=== PATIENT | female | born 1990 ===

== ENCOUNTER 2020-08-19 04:56 | Inpatient (IN) | payer MEDICAID ==
[2020-08-19] MEDS ORDERED: Misoprostol 25 MCG (1/4 of 100 MCG) Tab VAG PRN (09:24)
[2020-08-19] MEDS ORDERED: Lidocaine 1% 50 ML MDV INJECT PRN (09:24)
[2020-08-19] MEDS ORDERED: Misoprostol 25 MCG (1/4 of 100 MCG) Tab PO PRN (09:24)
[2020-08-19] MEDS ORDERED: Terbutaline 1 MG/ML SDV SUBCUT PRN (09:24)
[2020-08-19] MEDS ORDERED: Sodium Chloride 0.9% 10 ML Syringe FLUSH PRN (09:24)
[2020-08-19] MEDS ORDERED: Carboprost Tromethamine 250 MCG/1 ML Amp IM PRN (09:24)
[2020-08-19] MEDS ORDERED: Sodium Chloride 0.9% 2.5 ML Syringe FLUSH PRN (09:24)
[2020-08-19] MEDS ORDERED: Water For Irrigation,Sterile 1,000 ML Container IRR PRN (09:24)
[2020-08-19] MEDS ORDERED: Sodium Chloride 0.9% 10 ML SDV IV PRN (09:24)
[2020-08-19] MEDS ORDERED: Misoprostol 200 MCG Tab PO PRN (09:24)
[2020-08-19] MEDS ORDERED: Ondansetron 4 MG/2 ML SDV IVPUSH PRN (09:24)
[2020-08-19] MEDS ORDERED: Methylergonovine 0.2 MG/1 ML Amp IM PRN (09:24)
[2020-08-19] MEDS ORDERED: Tranexamic Acid 1,000 MG in Sodium Chloride 0.9% 100 ML IV PRN (09:24)
[2020-08-19] MEDS ORDERED: LORazepam 0.5 MG Tab PO ONE (09:28)
[2020-08-19] MEDS ORDERED: Oxytocin/0.9 % Sodium Chloride 30 UNIT/500 ML BAG IV SCH ×2 (09:30)
--- NOTE | 2020-08-19 10:28 | PCM.LDHP ---
L&D History of Present Illness - General Date of Service: 08/19/20 Admit Problem/Dx: Patient Status Order with Admit Dx/Problem 08/19/20 08:36 Patient Status [ADT] Routine Admission Diagnosis/Problem Admission Diagnosis/Problem 08/19/20 10:23 Lavinia is a 29 yo at 39+0 weeks gestation (KAY 08/26/2020) that presents to L&D today for elective induction of labor. Reports adequate movement. Denies rubio vaginal bleeding at this time. O pos, RI, GBS neg. EFW via [place] 7-8 lbs. 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 NKDA. TWG 58.8 lbs. Medications: PNV. Patient has no other complaints or concerns at this time and verbalizes readiness to commence with elective IOL. 08/19/20 10:28 Source of Information: Patient History Limitations: Reports: No Limitations - History of Present Illness Improves with: Reports: None Worsens with: Reports: None Associated Symptoms: Reports: N - Related Data Allergies/Adverse Reactions: Allergies Allergy/AdvReac Type Severity Reaction Status Date / Time Penicillins Allergy Anaphylactic Verified 08/19/20 09:22 Shock Home Medications: Home Meds Acetaminophen [Tylenol Extra Strength] 1 - 2 tab PO PRN 08/19/20 [History] Past Medical History Cardiovascular History: Reports: None Respiratory History: Reports: None Gastrointestinal History: Reports: None Genitourinary History: Reports: None 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 : 2 Para: 0 LMP (Approximate): Musculoskeletal History: Reports: Other (See Below) (Scoliosis; sciatica) Neurological History: Reports: Other (See Below) (RLS) Psychiatric History: Reports: Anxiety, Other (See Below) (Severe needle phobia) Endocrine/Metabolic History: Reports: Obesity/BMI 30+ Hematologic History: Reports: None Immunologic History: Reports: None Oncologic (Cancer) History: Reports: None Dermatologic History: Reports: None - Infectious Disease History Infectious Disease History: Reports: None Social & Family History - Family History Family Medical History: No Pertinent Family History H&P Review of Systems - Review of Systems: Review Of Systems: Comprehensive ROS is negative, except as noted in HPI. General: Reports: No Symptoms HEENT: Reports: No Symptoms Pulmonary: Reports: No Symptoms Cardiovascular: Reports: No Symptoms Gastrointestinal: Reports: No Symptoms Genitourinary: Reports: No Symptoms Musculoskeletal: Reports: No Symptoms Skin: Reports: No Symptoms Psychiatric: Reports: No Symptoms Neurological: Reports: No Symptoms Hematologic/Lymphatic: Reports: No Symptoms Immunologic: Reports: No Symptoms L&D Exam - Exam Exam: See Below - Vital Signs Vital Signs: HR 99; BP 124/71 (83); T 97.3. Hemodynamically stable, afebrile Weight: 260 lb - OB Specific Fundal Height In cm: 39 Contraction Duration (sec): 90 Contraction Frequency (min): Occasional Contraction Intensity: Mild Movement: Active Heart Tones: Present Heart Tones per Min: 160 Heart Rate (FHR) Variability: Moderate (6-25 bmp) Presentation: Vertex (Confirmed via Bruno's and handheld TAUS) - Exam General: Alert, Oriented, Mild Distress (Increased anxiety) HEENT: Conjunctiva Clear, Hearing Intact, Mucosa Moist & [place], Normal Nasal Septum, Pupils Equal, TMs Clear, PERRLA Neck: Supple, Trachea Midline Lungs: Clear to Auscultation, Normal Respiratory Effort Cardiovascular: Regular Rate, Regular Rhythm GI/Abdominal Exam: Normal Bowel Sounds, Soft, Non-Tender, No Organomegaly, No Distention Rectal Exam: Deferred Back Exam: Normal Inspection, Full Range of Motion Extremities: Normal Inspection, Normal Range of Motion, Non-Tender, No Pedal Edema, Normal Capillary Refill Skin: Warm, Dry, Intact Neurological: Cranial Nerves Intact, Reflexes Equal Bilateral Psychiatric: Alert, Normal Affect, Normal Mood - Problem List (1) Elective induction of labor planned SNOMED Code(s): 696247768 ICD Code: [id number] - Status: Acute Priority: High Current Visit: Yes (2) 39 weeks gestation of SNOMED Code(s): 61754684 ICD Code: Z3A.39 - 39 WEEKS GESTATION OF Status: Acute Priority: High Current Visit: Yes Problem List Initiated/Reviewed/Updated: Yes Orders Last 24hrs: Active Orders 24 hr Category Date Time Status Patient Status [ADT] Routine ADT 08/19/20 08:36 Active Bedrest Bathroom Privileges [RC] ASDIRECTED Care 08/19/20 09:24 Active Communication Order [RC] ASDIRECTED Care 08/19/20 09:24 Active Communication Order [RC] ASDIRECTED Care 08/19/20 09:24 Active Communication Order [RC] ASDIRECTED Care 08/19/20 09:24 Active Heart Tones [RC] CONTINUOUS Care 08/19/20 09:24 Active Non Stress Test [RC] PER UNIT ROUTINE Care 08/19/20 09:24 Active May Shower [RC] ASDIRECTED Care 08/19/20 09:24 Active Notify Provider [RC] PRN Care 08/19/20 09:24 Active Notify Provider [RC] PRN Care 08/19/20 09:24 Active Notify Provider [RC] PRN Care 08/19/20 09:24 Active Notify Provider [RC] STAT Care 08/19/20 09:24 Active Oxygen Therapy [RC] ASDIRECTED Care 08/19/20 09:24 Active Up ad Avani [RC] ASDIRECTED Care 08/19/20 09:24 Active Vaginal Exam [RC] PRN Care 08/19/20 09:24 Active Vaginal Exam [RC] PRN Care 08/19/20 09:24 Active Vital Signs [RC] PER UNIT ROUTINE Care 08/19/20 09:24 Active Vital Signs [RC] PER UNIT ROUTINE Care 08/19/20 09:24 Active Regular Diet [DIET] Diet 08/19/20 Lunch Active CBC W/O DIFF,HEMOGRAM [HEME] Routine Lab 08/19/20 09:24 Ordered CORONAVIRUS COVID-19 PCR PHL Stat Lab 08/19/20 09:26 Ordered RPR (SYPHILIS SERO) W/ RFLX [REF] Routine Lab 08/19/20 09:24 Ordered TYPE AND SCREEN [BBK] Routine Lab 08/19/20 09:24 Ordered Butorphanol [Stadol] Med 08/19/20 09:24 Active 1 mg IVPUSH Q1H PRN Carboprost Tromethamine [Hemabate DS] Med 08/19/20 09:24 Active 250 mcg IM ASDIRECTED PRN Lactated Ringers [Ringers, Lactated] 1,000 ml Med 08/19/20 09:30 Active IV ASDIRECTED Lidocaine 1% [Xylocaine 1%] Med 08/19/20 09:24 Active 50 ml INJECT ONETIME PRN Methylergonovine [Methergine] Med 08/19/20 09:24 Active 0.2 mg IM ASDIRECTED PRN Ondansetron [Zofran] Med 08/19/20 09:24 Active 4 mg IVPUSH Q6H PRN Oxytocin/0.9 % Sodium Chloride [Oxytocin 30 Unit/500 ML Med 08/19/20 09:30 Active -NS] 30 unit in 500 ml IV TITRATE Oxytocin/0.9 % Sodium Chloride [Oxytocin 30 Unit/500 ML Med 08/19/20 09:30 Active -NS] 30 unit in 500 ml IV TITRATE Sodium Chloride 0.9% [Normal Saline] Med 08/19/20 09:24 Active 10 ml IV ASDIRECTED PRN Sodium Chloride 0.9% [Saline Flush] Med 08/19/20 09:24 Active 10 ml FLUSH ASDIRECTED PRN Sodium Chloride 0.9% [Saline Flush] Med 08/19/20 09:24 Active 2.5 ml FLUSH ASDIRECTED PRN Terbutaline [Brethine] Med 08/19/20 09:24 Active 0.25 mg SUBCUT ASDIRECTED PRN Tranexamic Acid [Cyklokapron] 1,000 mg Med 08/19/20 09:24 Active Sodium Chloride 0.9% [Normal Saline] 100 ml IV ONETIME Water For Irrigation,Sterile [Sterile Water for Med 08/19/20 09:24 Active Irrigation] 1,000 ml IRR ASDIRECTED PRN hydrOXYzine pamoate [Vistaril] Med 08/19/20 09:27 Active 50 mg PO BEDTIME PRN miSOPROStoL [Cytotec] Med 08/19/20 09:24 Active 200 mcg PO ONETIME PRN miSOPROStoL [Cytotec] Med 08/19/20 09:24 Active 25 mcg PO Q4H PRN miSOPROStoL [Cytotec] Med 08/19/20 09:24 Active 25 mcg VAG Q4H PRN Scalp Electrode [WOMSER] Per Unit Routine Oth 08/19/20 09:24 Ordered Medication Administration Instruction [OM.PC] Q3H Oth 08/19/20 09:30 Ordered Peripheral IV Insertion Adult [OM.PC] Routine Oth 08/19/20 09:24 Ordered Resuscitation Status Routine Resus Stat 08/19/20 09:24 Ordered Medication Orders Butorphanol Tartrate (Stadol) 1 mg IVPUSH Q1H PRN PRN Reason: Pain Carboprost Tromethamine (Hemabate Ds) 250 mcg IM ASDIRECTED PRN PRN Reason: Post Hemorrhage Hydroxyzine Pamoate (Vistaril) 50 mg PO BEDTIME PRN PRN Reason: Sleep Oxytocin/Sodium Chloride (Oxytocin 30 Unit/500 Ml-Ns) 30 unit in 500 mls @ 999 mls/hr IV TITRATE MORELIA Tranexamic Acid 1,000 mg/ (Sodium Chloride) 110 mls @ 660 mls/hr IV ONETIME PRN PRN Reason: Bleeding Oxytocin/Sodium Chloride (Oxytocin 30 Unit/500 Ml-Ns) 30 unit in 500 mls @ 2 mls/hr IV TITRATE MORELIA; Protocol Lactated Ringer's (Ringers, Lactated) 1,000 mls @ 150 mls/hr IV ASDIRECTED MORELIA Lidocaine HCl (Xylocaine 1%) 50 ml INJECT ONETIME PRN PRN Reason: Laceration repair Methylergonovine Maleate (Methergine) 0.2 mg IM ASDIRECTED PRN PRN Reason: Post Hemorrhage Misoprostol (Cytotec) 200 mcg PO ONETIME PRN PRN Reason: Post Hemorrhage Misoprostol (Cytotec) 25 mcg VAG Q4H PRN PRN Reason: Cervical Ripening Misoprostol (Cytotec) 25 mcg PO Q4H PRN PRN Reason: Cervical Ripening Ondansetron HCl (Zofran) 4 mg IVPUSH Q6H PRN PRN Reason: Nausea/Vomiting Sodium Chloride (Saline Flush) 10 ml FLUSH ASDIRECTED PRN PRN Reason: Keep Vein Open Sodium Chloride (Saline Flush) 2.5 ml FLUSH ASDIRECTED PRN PRN Reason: Keep Vein Open Sodium Chloride (Normal Saline) 10 ml IV ASDIRECTED PRN PRN Reason: IV Use Sterile Water (Sterile Water For Irrigation) 1,000 ml IRR ASDIRECTED PRN PRN Reason: delivery Terbutaline Sulfate (Brethine) 0.25 mg SUBCUT ASDIRECTED PRN PRN Reason: Tacysystole Assessment/Plan Comment:: Admit for observation for elective IOL at 39.0 weeks gestation. Consents signed in office prior to arrival, no questions or concerns at this time. at bedside for support. 0.5 mg lorazepam given to patient 20-30 min prior to IV start/venipuncture. IV start and labs pending collection. FHR 160 bpm, moderate variability, + accels, no decels noted at this time; Cat I, reactive/reassuring. Mild occasional contractions noted. Plan 1000 ml LR bolus prior to SVE and cytotec placement; then cytotec to pitocin regimen as ordered. May receive epidural pending labs between 5-6 cm. See new orders. Plan Dr. Rosen in facility at due to failed 1-hr GTT with no F/U due to declination and excessive TWG for pre- BMI. Dr. Rosen notified and agreeable with POC.
[2020-08-19] MEDS: Lactated Ringers 1,000 ML IV SCH ×3 (13:16→17:02)
[2020-08-19] MEDS: Acetaminophen 500 MG Tab PO PRN (16:08)
[2020-08-19] MEDS: hydrOXYzine Pamoate 25 MG Cap PO PRN (17:34)
[2020-08-20] MEDS: Butorphanol 1 MG/ML SDV IVPUSH PRN ×2 (00:01→07:21)
[2020-08-20] MEDS: Lactated Ringers 1,000 ML IV SCH ×4 (00:56→13:24)
--- NOTE | 2020-08-20 06:04 | PCM.PNLD ---
Labor Progress Note - VS & Meds Vital Signs: Last Vital Signs Temp 99.7 F 08/19/20 16:08 Pulse 66 08/19/20 09:26 Resp 20 08/19/20 09:26 BP 117/75 08/19/20 09:26 Pulse Ox BP 108/74 (82); RR 16; HR 76; T 98.0 Active Medications: Current Medications Acetaminophen (Tylenol Extra Strength) 1,000 mg PO Q6H PRN PRN Reason: Pain Last Admin: 08/19/20 16:08 Dose: 1,000 mg Documented by: Butorphanol Tartrate (Stadol) 1 mg IVPUSH Q1H PRN PRN Reason: Pain Last Admin: 08/20/20 00:01 Dose: 1 mg Documented by: Carboprost Tromethamine (Hemabate Ds) 250 mcg IM ASDIRECTED PRN PRN Reason: Post Hemorrhage Hydroxyzine Pamoate (Vistaril) 50 mg PO BEDTIME PRN PRN Reason: Sleep Last Admin: 08/19/20 17:34 Dose: 50 mg Documented by: Oxytocin/Sodium Chloride (Oxytocin 30 Unit/500 Ml-Ns) 30 unit in 500 mls @ 999 mls/hr IV TITRATE MORELIA Tranexamic Acid 1,000 mg/ (Sodium Chloride) 110 mls @ 660 mls/hr IV ONETIME PRN PRN Reason: Bleeding Oxytocin/Sodium Chloride (Oxytocin 30 Unit/500 Ml-Ns) 30 unit in 500 mls @ 2 mls/hr IV TITRATE MORELIA; Protocol Last Titration: 08/20/20 05:05 Dose: 12 munits/min, 12 mls/hr Documented by: Lactated Ringer's (Ringers, Lactated) 1,000 mls @ 150 mls/hr IV ASDIRECTED MORELIA Last Admin: 08/20/20 00:56 Dose: 125 mls/hr Documented by: Lidocaine HCl (Xylocaine 1%) 50 ml INJECT ONETIME PRN PRN Reason: Laceration repair Methylergonovine Maleate (Methergine) 0.2 mg IM ASDIRECTED PRN PRN Reason: Post Hemorrhage Misoprostol (Cytotec) 200 mcg PO ONETIME PRN PRN Reason: Post Hemorrhage Misoprostol (Cytotec) 25 mcg VAG Q4H PRN PRN Reason: Cervical Ripening Last Admin: 08/19/20 13:21 Dose: 25 mcg Documented by: Misoprostol (Cytotec) 25 mcg PO Q4H PRN PRN Reason: Cervical Ripening Last Admin: 08/19/20 13:23 Dose: 25 mcg Documented by: Ondansetron HCl (Zofran) 4 mg IVPUSH Q6H PRN PRN Reason: Nausea/Vomiting Sodium Chloride (Saline Flush) 10 ml FLUSH ASDIRECTED PRN PRN Reason: Keep Vein Open Sodium Chloride (Saline Flush) 2.5 ml FLUSH ASDIRECTED PRN PRN Reason: Keep Vein Open Sodium Chloride (Normal Saline) 10 ml IV ASDIRECTED PRN PRN Reason: IV Use Sterile Water (Sterile Water For Irrigation) 1,000 ml IRR ASDIRECTED PRN PRN Reason: delivery Terbutaline Sulfate (Brethine) 0.25 mg SUBCUT ASDIRECTED PRN PRN Reason: Tacysystole Discontinued Medications Lorazepam (Ativan) 0.5 mg PO ONETIME ONE Stop: 08/19/20 09:29 Last Admin: 08/19/20 10:04 Dose: 0.5 mg Documented by: - Uterine Contractions Uterine Monitoring Mode: External [place] Contraction Frequency (min): Occasional Contraction Duration (sec): 60-90 Contraction Intensity: Moderate Uterine Resting Tone: Soft - Monitoring Monitor Mode: External Ultrasound Heart Rate (FHR) Baseline: 165 Heart Rate (FHR) Variability: Moderate (6-25 bmp) Accelerations: Present, 15x15 Decelerations: None - Vaginal Exam Dilation (cm): 4 Effacement (Percent): 50 Station: -3 Cervical Position: Midposition Sterile Vaginal Exam Performed By: Sangeetha Scott - Labor Progress (Free Text) Labor Progress: Lavinia is a 29 yo at 39+1 weeks gestation (KAY 08/26/2020) that presented 08/19 to L&D today for elective induction of labor. Reports adequate movement. Denies rubio vaginal bleeding, LOF at this time. O pos, RI, GBS neg. . 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 NKDA. TWG 58.8 lbs. Medications: PNV. Patient completed Cook catheter cervical ripening that was placed ~1730 08/19 and spontaneously expelled around 0000 today with SVE at that time OF 3-50/-3. Pitocin titration started around 2 am due to lack of cervical change, current on 12 milliunits/min. FHR as indicated above. Hemodynamically stable, afebrile. SVE performed by CNM at bedside unchanged, 50/-3, soft and stretchy, midposition. AROM completed without incident, small clear fluid, cephalic. FHR 165, moderate variability, + accels, no decels. Mild to moderate contractions/uterine irritability palpated every 1-2 minutes. Plan to decrease pitocin titrate to 6 milliunits/min, patient shall ambulate and perform frequent position changes. May receive epidural analgesia between 5-6 cm. Continuous monitoring indicated as long as pitocin titration is continued. Dr. Rosen notified and agreeable with POC.
[2020-08-20] MEDS ORDERED: Ropivacaine HCl/PF 100 ML ONE ×2 (08:14→18:47)
[2020-08-20] MEDS ORDERED: fentaNYL 100 MCG/2 ML SDV ONE (08:14)
--- NOTE | 2020-08-20 09:03 | PCM.PREANE ---
Preanesthetic Assessment - Anesthesia/Transfusion/Family Hx Anesthesia History: Prior Anesthesia Without Reaction Family History of Anesthesia Reaction: No Transfusion History: No Prior Transfusion(s) - Review of Systems General: No Symptoms Pulmonary: No Symptoms Cardiovascular: No Symptoms Gastrointestinal: No Symptoms Neurological: Other (back pain) Other: Reports: Anxiety - Physical Assessment Vital Signs: Last Vital Signs Temp 37.6 C 08/19/20 16:08 Pulse 66 08/19/20 09:26 Resp 20 08/19/20 09:26 BP 117/75 08/19/20 09:26 Pulse Ox Height: 1.73 m Weight: 117.934 kg ASA Class: 2 Mental Status: Alert & Oriented x3 Airway Class: Mallampati = 2 Dentition: Reports: Normal Dentition Thyro-Mental Finger Breadths: 3 Mouth Opening Finger Breadths: 2 ROM/Head Extension: Full Lungs: Clear to Auscultation, Normal Respiratory Effort Cardiovascular: Regular Rate, Regular Rhythm - Lab Values: Laboratory Last Values WBC 9.59 K/uL (4.0-11.0) 08/19/20 12:48 RBC 4.19 M/uL (4.30-5.90) L 08/19/20 12:48 Hgb 11.4 g/dL (12.0-16.0) L 08/19/20 12:48 Hct 35.4 % (36.0-46.0) L 08/19/20 12:48 MCV 84.5 fL (80.0-98.0) 08/19/20 12:48 MCH 27.2 pg (27.0-32.0) 08/19/20 12:48 MCHC 32.2 g/dL (31.0-37.0) 08/19/20 12:48 RDW Std Deviation 48.5 fl (28.0-62.0) 08/19/20 12:48 RDW Coeff of Janine 16 % (11.0-15.0) H 08/19/20 12:48 Plt Count 264 K/uL (150-400) 08/19/20 12:48 MPV 10.90 fL (7.40-12.00) 08/19/20 12:48 Nucleated RBC % 0.0 /100WBC 08/19/20 12:48 Nucleated RBCs # 0 K/uL 08/19/20 12:48 Glucose 116 mg/dL (74-106) H 08/19/20 12:48 SARS-CoV-2 RNA (BRAIN) NEGATIVE (NEGATIVE) 08/19/20 10:56 Blood Type O POSITIVE 08/19/20 12:48 Antibody Screen NEGATIVE 08/19/20 12:48 - Allergies Allergies/Adverse Reactions: Allergies Allergy/AdvReac Type Severity Reaction Status Date / Time Penicillins Allergy Anaphylactic Verified 08/19/20 09:22 Shock - Acknowledgements Anesthesia Type Planned: Epidural (Dr. Torres discussed risks and benefits with the patient. All questions answered. Patient consent. Dr. Torres was requested to place epidural. 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 Musculoskeletal History: Reports: Back Pain, Chronic, Other (See Below) (S coliosis; sciatica, RLS) Neurological History: Reports: Other (See Below) (RLS) Other Neuro History: migraines during Psychiatric History: Reports: Anxiety, Other (See Below) (Severe needle phobia) Endocrine/Metabolic History: Reports: Obesity/BMI 30+ Hematologic History: Reports: None Immunologic History: Reports: None Oncologic (Cancer) History: Reports: None Dermatologic History: Reports: None - Infectious Disease History Infectious Disease History: Reports: None - Past Surgical History HEENT Surgical History: Reports: Oral Surgery Neurological Surgical History: Reports: None - History Comment History Comment: bp 116/74, temp 98.7, rr 19, p 84 - SUBSTANCE USE Tobacco Use Status *Q: Never Tobacco User Recreational Drug Use History: Yes Recreational Drug Type: Reports: Marijuana/Hashish - HOME MEDS Home Medications: Home Meds Acetaminophen [Tylenol Extra Strength] 1 - 2 tab PO PRN 08/19/20 [History] - CURRENT (IN HOUSE) MEDS Current Meds: Current Medications Acetaminophen (Tylenol Extra Strength) 1,000 mg PO Q6H PRN PRN Reason: Pain Last Admin: 08/19/20 16:08 Dose: 1,000 mg Documented by: Butorphanol Tartrate (Stadol) 1 mg IVPUSH Q1H PRN PRN Reason: Pain Last Admin: 08/20/20 07:21 Dose: 1 mg Documented by: Carboprost Tromethamine (Hemabate Ds) 250 mcg IM ASDIRECTED PRN PRN Reason: Post Hemorrhage Hydroxyzine Pamoate (Vistaril) 50 mg PO BEDTIME PRN PRN Reason: Sleep Last Admin: 08/19/20 17:34 Dose: 50 mg Documented by: Oxytocin/Sodium Chloride (Oxytocin 30 Unit/500 Ml-Ns) 30 unit in 500 mls @ 999 mls/hr IV TITRATE MORELIA Tranexamic Acid 1,000 mg/ (Sodium Chloride) 110 mls @ 660 mls/hr IV ONETIME PRN PRN Reason: Bleeding Oxytocin/Sodium Chloride (Oxytocin 30 Unit/500 Ml-Ns) 30 unit in 500 mls @ 2 mls/hr IV TITRATE MORELIA; Protocol Last Titration: 08/20/20 05:55 Dose: 6 munits/min, 6 mls/hr Documented by: Lactated Ringer's (Ringers, Lactated) 1,000 mls @ 150 mls/hr IV ASDIRECTED MORELIA Last Admin: 08/20/20 08:56 Dose: 300 mls/hr Documented by: Lidocaine HCl (Xylocaine 1%) 50 ml INJECT ONETIME PRN PRN Reason: Laceration repair Methylergonovine Maleate (Methergine) 0.2 mg IM ASDIRECTED PRN PRN Reason: Post Hemorrhage Misoprostol (Cytotec) 200 mcg PO ONETIME PRN PRN Reason: Post Hemorrhage Misoprostol (Cytotec) 25 mcg VAG Q4H PRN PRN Reason: Cervical Ripening Last Admin: 08/19/20 13:21 Dose: 25 mcg Documented by: Misoprostol (Cytotec) 25 mcg PO Q4H PRN PRN Reason: Cervical Ripening Last Admin: 08/19/20 13:23 Dose: 25 mcg Documented by: Ondansetron HCl (Zofran) 4 mg IVPUSH Q6H PRN PRN Reason: Nausea/Vomiting Sodium Chloride (Saline Flush) 10 ml FLUSH ASDIRECTED PRN PRN Reason: Keep Vein Open Sodium Chloride (Saline Flush) 2.5 ml FLUSH ASDIRECTED PRN PRN Reason: Keep Vein Open Sodium Chloride (Normal Saline) 10 ml IV ASDIRECTED PRN PRN Reason: IV Use Sterile Water (Sterile Water For Irrigation) 1,000 ml IRR ASDIRECTED PRN PRN Reason: delivery Terbutaline Sulfate (Brethine) 0.25 mg SUBCUT ASDIRECTED PRN PRN Reason: Tacysystole Discontinued Medications Fentanyl (Sublimaze) Confirm Administered Dose 200 mcg .ROUTE .STK-MED ONE Stop: 08/20/20 08:15 Ropivacaine (Naropin 0.2%) Confirm Administered Dose 100 mls @ as directed .ROUTE .STK-MED ONE Stop: 08/20/20 08:15 Lorazepam (Ativan) 0.5 mg PO ONETIME ONE Stop: 08/19/20 09:29 Last Admin: 08/19/20 10:04 Dose: 0.5 mg Documented by:
[2020-08-20] MEDS ORDERED: Dinoprostone 10 MG Insert VAG ONE (10:00)
--- NOTE | 2020-08-20 10:42 | PCM.SN.2 ---
- Free Text/Narrative Note: Called to do peripheral I.V. on very anxious patient. 20 gauge I.V. placed on left hand easily. Patient tolerated very well.
--- NOTE | 2020-08-20 18:59 | PCM.SN.2 ---
- Free Text/Narrative Note: called for epidural bag change. [id number].
[2020-08-21] MEDS: Acetaminophen 500 MG Tab PO PRN ×2 (00:26→19:48)
[2020-08-21] MEDS ORDERED: Ropivacaine HCl/PF 100 ML ONE (01:09)
--- NOTE | 2020-08-21 01:22 | PCM.SN.2 ---
- Free Text/Narrative Note: Called to changed epidural medication. [phone]
[2020-08-21] MEDS ORDERED: Bupivacaine 0.5% 30 ML SDV ONE (04:01)
[2020-08-21] MEDS ORDERED: Clindamycin Phosphate in D5W 50 ML IV ONE (04:15)
[2020-08-21] MEDS ORDERED: fentaNYL 100 MCG/2 ML SDV ONE ×2 (04:54→05:36)
[2020-08-21] MEDS ORDERED: Ondansetron 4 MG/2 ML SDV ONE (04:56)
[2020-08-21] MEDS ORDERED: Oxytocin 10 Units/1 ML SDV ONE (04:57)
[2020-08-21] MEDS ORDERED: Propofol 200 MG/20 ML SDV ONE (04:58)
[2020-08-21] MEDS ORDERED: Morphine PF 10 MG/10 ML SDV ONE (05:06)
--- NOTE | 2020-08-21 05:16 | PCM.OPNOTE ---
- General Post-Op/Procedure Note Date of Surgery/Procedure: 08/21/20 Operative Procedure(s): Primary C/section. Pre Op Diagnosis: IUP term faild induction. Post-Op Diagnosis: Same Anesthesia Technique: Epidural Primary Surgeon: Beau Rosen Quarrying Manager: Sangeetha Scott EBL in mLs: 800 Complications: None Condition: Good
[2020-08-21] MEDS ORDERED: Tranexamic Acid 1,000 MG in Sodium Chloride 0.9% 100 ML IV PRN (05:17)
[2020-08-21] MEDS ORDERED: Ondansetron 4 MG/2 ML SDV IVPUSH PRN ×2 (05:17→08:17)
[2020-08-21] MEDS ORDERED: Lanolin 100% Cream 7 GM Tube TOP PRN (05:17)
[2020-08-21] MEDS ORDERED: diphenhydrAMINE 50 MG/ML SDV IVPUSH PRN ×2 (05:17→08:17)
[2020-08-21] MEDS ORDERED: Acetaminophen/oxyCODONE 325-5 MG Tab PO PRN ×2 (05:17→08:17)
[2020-08-21] MEDS ORDERED: Misoprostol 200 MCG Tab RECTAL PRN (05:17)
[2020-08-21] MEDS ORDERED: Bisacodyl 10 MG Supp RECTAL PRN (05:17)
[2020-08-21] MEDS ORDERED: Oxytocin 10 Units/1 ML SDV IM PRN (05:17)
[2020-08-21] MEDS ORDERED: Methylergonovine 0.2 MG/1 ML Amp IM PRN (05:17)
--- NOTE | 2020-08-21 05:25 | PCM.SN.2 ---
- Free Text/Narrative Note: called for emergency section at 0343. Patient only received 1 liter of LR. 0.5% Bupivacaine 15 m given at 0412, to OR t10 level. 2 ml given then 3 ml given for t [address] Torres.
[2020-08-21] MEDS ORDERED: Lactated Ringers 1,000 ML IV SCH (05:30)
[2020-08-21] MEDS ORDERED: Ketorolac 30 MG/ML SDV ONE (05:34)
--- NOTE | 2020-08-21 07:49 | PCM.POSTAN ---
POST ANESTHESIA ASSESSMENT - MENTAL STATUS Mental Status: Alert, Oriented - VITAL SIGNS Vital Signs: Last Vital Signs Temp 37.6 C 08/19/20 16:08 Pulse 66 08/19/20 09:26 Resp 20 08/19/20 09:26 BP 117/75 08/19/20 09:26 Pulse Ox - RESPIRATORY Respiratory Status: Respiratory Rate WNL, Airway Patent, O2 Saturation Stable - CARDIOVASCULAR CV Status: Pulse Rate WNL, Blood Pressure Stable - GASTROINTESTINAL GI Status: No Symptoms - POST OP HYDRATION Hydration Status: Adequate & Stable - OBSERVATIONS Free Text/Narrative:: There were no apparent anesthetic complications at this time.
--- NOTE | 2020-08-21 07:56 | OR ---
SURGEON: Beau Rosen MD DATE OF PROCEDURE: 08/21/2020 PREOPERATIVE DIAGNOSES: Intrauterine at term, failed induction, failure to descend, and failure to progress. POSTOPERATIVE DIAGNOSES: Intrauterine at term, failed induction, failure to descend, and failure to progress. OPERATION PERFORMED: Primary low-transverse section. PRIMARY SURGEON: Dr. Rosen. MULE RIDER: Sangeetha Scott. ANESTHESIA: Epidural, Dr. Scott. ESTIMATED BLOOD LOSS: 800 mL. COMPLICATIONS: None. FINDING: Female fetus. score is not available and the weight is not available at the time of the dictation. INDICATION FOR SURGERY: This patient is term. She is admitted for elective induction. She was induced with Cytotec and Pitocin. The patient progressed rather slowly and then she progressed to a complete, complete and 0 station. In spite of adequate contraction and pushing, the patient was complete, complete, 0 station. Did not have any further descent and so, failure to descend and failed induction is diagnosed and a primary low-transverse section is performed. PROCEDURE IN DETAIL: The patient was brought to the OR, properly identified. After adequate level of anesthesia, the patient placed in supine on the operative table, prepped and draped in sterile fashion as usual. Low transverse Pfannenstiel skin incision was done. Shilpi fascia and rectus fascia were opened in the direction of the incision. The 2 recti muscles were and peritoneal cavity was entered. Bladder flap was raised in the usual manner pushing the bladder away from the lower uterine segment and low-transverse uterine incision is done, extended manually with hand and fetus was in the vertex position, delivered without any problem. Once we delivered the fetus, the placenta delivered spontaneous complete and intact and then repair of the lower uterine segment is done with 2- 0 Vicryl continuous interlocking for hemostasis and then 3-0 Vicryl is used for reperitonealization of the lower uterine segment. Next, the peritoneal cavity evacuated completely from all blood and blood clot and closed with 3-0 Vicryl continuous. Next, the rectus fascia is closed with #1 double-strand PDS continuous, the Shilpi's fascia with 3-0 Vicryl continuous. The skin is closed with 3-0 Vicryl in a subcuticular fashion and a CORAZON dressing is applied. Instrument, sponge count was correct. The patient tolerated the procedure well, went to recovery room in stable general condition. JULIO CESAR / EDGARDO /[id number]
[2020-08-21] MEDS ORDERED: Naloxone 0.4 MG/ML Syringe IVPUSH PRN (08:17)
[2020-08-21] MEDS ORDERED: Nalbuphine 10 MG/1 ML Vial IVPUSH PRN (08:17)
[2020-08-21] MEDS: fentaNYL 100 MCG/2 ML SDV IVPUSH PRN ×3 (09:09→19:32)
[2020-08-21] MEDS: Docusate Sodium 100 MG Cap PO SCH ×2 (09:12→21:00)
[2020-08-21] MEDS: Ketorolac 30 MG/ML SDV IVPUSH SCH ×3 (11:02→23:27)
[2020-08-21] MEDS: hydrOXYzine Pamoate 25 MG Cap PO PRN (21:08)
[2020-08-22] MEDS: fentaNYL 100 MCG/2 ML SDV IVPUSH PRN (00:48)
[2020-08-22] MEDS: Ketorolac 30 MG/ML SDV IVPUSH SCH ×3 (05:28→11:34)
[2020-08-22] MEDS: Acetaminophen 500 MG Tab PO PRN (05:34)
--- NOTE | 2020-08-22 07:23 | PCM48HPAN ---
Post Anesthesia Note - EVALUATION WITHIN 48HRS OF ANESTHETIC Vital Signs in Normal Range: Yes Patient Participated in Evaluation: Yes Respiratory Function Stable: Yes Airway Patent: Yes Cardiovascular Function Stable: Yes Hydration Status Stable: Yes Pain Control Satisfactory: Yes (Current pain 2/10, worsens with movement. Reports satisfactory pain control) Nausea and Vomiting Control Satisfactory: Yes (Denies nausea) Mental Status Recovered: Yes Vital Signs: Last Vital Signs Temp 37.6 C 08/22/20 06:27 Pulse 105 H 08/22/20 06:00 Resp 20 08/22/20 05:37 BP 108/73 08/22/20 05:37 Pulse Ox 92 L 08/22/20 06:00 - COMMENTS/OBSERVATIONS Free Text/Narrative:: Ambulating without assistance, full return of strength and sensation to BLE.
[2020-08-22] MEDS: Docusate Sodium 100 MG Cap PO SCH ×2 (09:15→19:58)
--- NOTE | 2020-08-22 09:42 | PCM.PNPP ---
- General Info Date of Service: 08/22/20 Admission Dx/Problem (Free Text): Patient Status Order with Admit Dx/Problem 08/19/20 08:36 Patient Status [ADT] Routine Admission Diagnosis/Problem Admission Diagnosis/Problem 08/19/20 10:23 Lavinia is a 29 yo at that presented to L&D at 39+0 (KAY 08/26/2020) for elective IOL with resulting primary LTCS at 39+1 wks due to failure to descend and prolonged 2nd stage labor >3 hours, ROM ~23 hours. O pos, RI, GBS neg. Received paige-op clindamycin for surgical prophylaxis. 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 NKDA. TWG 58.8 lbs. NBF 9 lbs 6 oz (4240 g); FSBS 23 with glucose administration x 2; likely undiagnosed GDM. 08/19/20 10:28 Functional Status: Reports: Pain Controlled, Tolerating Diet, Incentive Spirometry - Review of Systems General: Reports: No Symptoms (Fever resolved.) HEENT: Reports: No Symptoms, Sinus Congestion, Sore Throat Pulmonary: Reports: No Symptoms ("I feel like I have something going on in my chest") Cardiovascular: Reports: No Symptoms Gastrointestinal: Reports: No Symptoms Genitourinary: Reports: No Symptoms Musculoskeletal: Reports: No Symptoms Skin: Reports: No Symptoms Neurological: Reports: No Symptoms Psychiatric: Reports: No Symptoms - General Info Date of Service: 08/22/20 - Patient Data Vital Signs - Most Recent: Last Vital Signs Temp 98 F 08/22/20 07:30 Pulse 89 08/22/20 07:30 Resp 14 08/22/20 07:30 BP 106/62 08/22/20 07:30 Pulse Ox 93 L 08/22/20 07:30 Weight - Most Recent: 260 lb I&O - Last 24 Hours: Intake & Output 08/21/20 08/22/20 08/22/20 22:59 06:59 14:59 Intake Total 800 900 Output Total 350 1300 Balance 450 -400 Lab Results - Last 24 Hours: Laboratory Results - last 24 hr 08/19/20 08/21/20 08/21/20 Range/Units 12:48 21:40 21:40 WBC 10.86 (4.0-11.0) K/uL RBC 3.54 L (4.30-5.90) M/uL Hgb 9.7 L (12.0-16.0) g/dL Hct 29.2 L (36.0-46.0) % MCV 82.5 (80.0-98.0) fL MCH 27.4 (27.0-32.0) pg MCHC 33.2 (31.0-37.0) g/dL RDW Std Deviation 48.5 (28.0-62.0) fl RDW Coeff of Janine 16 H (11.0-15.0) % Plt Count 194 (150-400) K/uL MPV 10.30 (7.40-12.00) fL Neut % (Auto) 80.9 H (48.0-80.0) % Lymph % (Auto) 12.2 L (16.0-40.0) % [place] % (Auto) 5.7 (0.0-15.0) % Eos % (Auto) 1.0 (0.0-7.0) % Baso % (Auto) 0.2 (0.0-1.5) % Neut # (Auto) 8.8 H (1.4-5.7) K/uL Lymph # (Auto) 1.3 (0.6-2.4) K/uL [place] # (Auto) 0.6 (0.0-0.8) K/uL Eos # (Auto) 0.1 (0.0-0.7) K/uL Baso # (Auto) 0.0 (0.0-0.1) K/uL Nucleated RBC % 0.0 /100WBC Nucleated RBCs # 0 K/uL Sodium 136 (136-145) mmol/L Potassium 4.0 (3.5-5.1) mmol/L Chloride 105 (98-107) mmol/L Carbon Dioxide 21.0 (21.0-32.0) mmol/L BUN 18 (7.0-18.0) mg/dL Creatinine 1.3 H (0.6-1.0) mg/dL Est Cr Clr Drug Dosing 64.99 mL/min Estimated GFR (MDRD) 48.8 ml/min Glucose 79 (74-106) mg/dL Calcium 7.9 L (8.5-10.1) mg/dL Total Bilirubin 0.4 (0.2-1.0) mg/dL AST 20 (15-37) IU/L ALT 13 L (14-63) IU/L Alkaline Phosphatase 98 (46-116) U/L Total Protein 4.6 L (6.4-8.2) g/dL Albumin 1.6 L (3.4-5.0) g/dL Globulin 3.0 (2.6-4.0) g/dL Albumin/Globulin Ratio 0.5 L (0.9-1.6) RPR Non-Reac (Non-Reac) 08/22/20 Range/Units 06:50 WBC (4.0-11.0) K/uL RBC (4.30-5.90) M/uL Hgb 9.3 L (12.0-16.0) g/dL Hct 28.5 L (36.0-46.0) % MCV (80.0-98.0) fL MCH (27.0-32.0) pg MCHC (31.0-37.0) g/dL RDW Std Deviation (28.0-62.0) fl RDW Coeff of Janine (11.0-15.0) % Plt Count (150-400) K/uL MPV (7.40-12.00) fL Neut % (Auto) (48.0-80.0) % Lymph % (Auto) (16.0-40.0) % [place] % (Auto) (0.0-15.0) % Eos % (Auto) (0.0-7.0) % Baso % (Auto) (0.0-1.5) % Neut # (Auto) (1.4-5.7) K/uL Lymph # (Auto) (0.6-2.4) K/uL [place] # (Auto) (0.0-0.8) K/uL Eos # (Auto) (0.0-0.7) K/uL Baso # (Auto) (0.0-0.1) K/uL Nucleated RBC % /100WBC Nucleated RBCs # K/uL Sodium (136-145) mmol/L Potassium (3.5-5.1) mmol/L Chloride (98-107) mmol/L Carbon Dioxide (21.0-32.0) mmol/L BUN (7.0-18.0) mg/dL Creatinine (0.6-1.0) mg/dL Est Cr Clr Drug Dosing mL/min Estimated GFR (MDRD) ml/min Glucose (74-106) mg/dL Calcium (8.5-10.1) mg/dL Total Bilirubin (0.2-1.0) mg/dL AST (15-37) IU/L ALT (14-63) IU/L Alkaline Phosphatase (46-116) U/L Total Protein (6.4-8.2) g/dL Albumin (3.4-5.0) g/dL Globulin (2.6-4.0) g/dL Albumin/Globulin Ratio (0.9-1.6) RPR (Non-Reac) Med Orders - Current: Current Medications Acetaminophen (Tylenol Extra Strength) 1,000 mg PO Q6H PRN PRN Reason: Pain Last Admin: 08/22/20 05:34 Dose: 1,000 mg Documented by: Bisacodyl (Dulcolax) 10 mg RECTAL ONETIME PRN PRN Reason: Constipation Butorphanol Tartrate (Stadol) 1 mg IVPUSH Q1H PRN PRN Reason: Pain Last Admin: 08/20/20 07:21 Dose: 1 mg Documented by: Carboprost Tromethamine (Hemabate Ds) 250 mcg IM ASDIRECTED PRN PRN Reason: Post Hemorrhage Diphenhydramine HCl (Benadryl) 25 mg IVPUSH Q6H PRN PRN Reason: Itching or Nausea Docusate Sodium (Colace) 100 mg PO BID MORELIA Last Admin: 08/22/20 09:15 Dose: 100 mg Documented by: Emollient Ointment (Lansinoh Hpa) 0 gm TOP ASDIRECTED PRN PRN Reason: Sore Nipples Hydroxyzine Pamoate (Vistaril) 50 mg PO BEDTIME PRN PRN Reason: Sleep Last Admin: 08/21/20 21:08 Dose: 50 mg Documented by: Oxytocin/Sodium Chloride (Oxytocin 30 Unit/500 Ml-Ns) 30 unit in 500 mls @ 999 mls/hr IV TITRATE MORELIA Tranexamic Acid 1,000 mg/ (Sodium Chloride) 110 mls @ 660 mls/hr IV ONETIME PRN PRN Reason: Bleeding Oxytocin/Sodium Chloride (Oxytocin 30 Unit/500 Ml-Ns) 30 unit in 500 mls @ 2 mls/hr IV TITRATE [facility]; Protocol Last Titration: 08/21/20 03:30 Dose: 0 munits/min, 0 mls/hr Documented by: Lactated Ringer's (Ringers, Lactated) 1,000 mls @ 150 mls/hr IV ASDIRECTED [facility] Last Admin: 08/20/20 13:24 Dose: 200 mls/hr Documented by: Lactated Ringer's (Ringers, Lactated) 1,000 mls @ 125 mls/hr IV ASDIRECTED [facility] Last Infusion: 08/22/20 00:39 Dose: Infused Documented by: Tranexamic Acid 1,000 mg/ (Sodium Chloride) 110 mls @ 660 mls/hr IV ONETIME PRN PRN Reason: Bleeding Ibuprofen (Motrin) 800 mg PO Q8H PRN PRN Reason: mild pain or fever Lidocaine HCl (Xylocaine 1%) 50 ml INJECT ONETIME PRN PRN Reason: Laceration repair Methylergonovine Maleate (Methergine) 0.2 mg IM ASDIRECTED PRN PRN Reason: Post Hemorrhage Methylergonovine Maleate (Methergine) 0.2 mg IM ONETIME PRN PRN Reason: Excessive Vaginal Bleeding Misoprostol (Cytotec) 200 mcg PO ONETIME PRN PRN Reason: Post Hemorrhage Misoprostol (Cytotec) 25 mcg VAG Q4H PRN PRN Reason: Cervical Ripening Last Admin: 08/19/20 13:21 Dose: 25 mcg Documented by: Misoprostol (Cytotec) 25 mcg PO Q4H PRN PRN Reason: Cervical Ripening Last Admin: 08/19/20 13:23 Dose: 25 mcg Documented by: Misoprostol (Cytotec) 1,000 mcg RECTAL ONETIME PRN PRN Reason: excessive bleeding Ondansetron HCl (Zofran) 4 mg IVPUSH Q6H PRN PRN Reason: Nausea/Vomiting Ondansetron HCl (Zofran) 4 mg IVPUSH Q4H PRN PRN Reason: Nausea/Vomiting Ondansetron HCl (Zofran) 4 mg IVPUSH Q6H PRN PRN Reason: Nausea Oxycodone/Acetaminophen (Percocet 325-5 Mg) 1 tab PO Q4H PRN PRN Reason: Pain (moderate 4-6) Oxycodone/Acetaminophen (Percocet 325-5 Mg) 2 tab PO Q4H PRN PRN Reason: Pain (moderate 4-6) Oxycodone/Acetaminophen (Percocet 325-5 Mg) 2 tab PO Q6H PRN PRN Reason: Pain (moderate 4-6) Oxytocin (Pitocin) 10 unit IM ASDIRECTED PRN PRN Reason: Excessive Vaginal Bleeding Sodium Chloride (Saline Flush) 10 ml FLUSH ASDIRECTED PRN PRN Reason: Keep Vein Open Sodium Chloride (Saline Flush) 2.5 ml FLUSH ASDIRECTED PRN PRN Reason: Keep Vein Open Sodium Chloride (Normal Saline) 10 ml IV ASDIRECTED PRN PRN Reason: IV Use Sterile Water (Sterile Water For Irrigation) 1,000 ml IRR ASDIRECTED PRN PRN Reason: delivery Terbutaline Sulfate (Brethine) 0.25 mg SUBCUT ASDIRECTED PRN PRN Reason: Tacysystole Discontinued Medications Bupivacaine HCl (Marcaine 0.5%) Confirm Administered Dose 30 ml .ROUTE .STK-MED ONE Stop: 08/21/20 04:02 Dinoprostone (Cervidil) 10 mg VAG ONETIME ONE Stop: 08/20/20 10:01 Last Admin: 08/20/20 11:46 Dose: 10 mg Documented by: Diphenhydramine HCl (Benadryl) 25 mg IVPUSH Q4H PRN PRN Reason: Itching Stop: 08/22/20 08:17 Fentanyl (Sublimaze) Confirm Administered Dose 200 mcg .ROUTE .STK-MED ONE Stop: 08/20/20 08:15 Fentanyl (Sublimaze) Confirm Administered Dose 100 mcg .ROUTE .STK-MED ONE Stop: 08/21/20 04:55 Fentanyl (Sublimaze) Confirm Administered Dose 100 mcg .ROUTE .STK-MED ONE Stop: 08/21/20 05:37 Fentanyl (Sublimaze) 50 mcg IVPUSH Q1H PRN PRN Reason: Pain (severe 7-10) Last Admin: 08/22/20 00:48 Dose: 50 mcg Documented by: Ropivacaine (Naropin 0.2%) Confirm Administered Dose 100 mls @ as directed .ROUTE .STK-MED ONE Stop: 08/20/20 08:15 Ropivacaine (Naropin 0.2%) Confirm Administered Dose 100 mls @ as directed .ROUTE .STK-MED ONE Stop: 08/20/20 18:48 Ropivacaine (Naropin 0.2%) Confirm Administered Dose 100 mls @ as directed .ROUTE .STK-MED ONE Stop: 08/21/20 01:10 Clindamycin Phosphate (Cleocin In D5w) 50 mls @ 100 mls/hr IV NOW ONE Stop: 08/21/20 04:44 Acetaminophen (Ofirmev) Confirm Administered Dose 100 mls @ as directed .ROUTE .STK-MED ONE Stop: 08/21/20 06:00 Ketorolac Tromethamine (Toradol) 30 mg IVPUSH Q6H MORELIA Stop: 08/22/20 05:31 Last Admin: 08/22/20 05:28 Dose: 30 mg Documented by: Ketorolac Tromethamine (Toradol) Confirm Administered Dose 30 mg .ROUTE .STK-MED ONE Stop: 08/21/20 05:35 Lidocaine HCl (Xylocaine-Mpf 1%) Confirm Administered Dose 5 ml .ROUTE .STK-MED ONE Stop: 08/21/20 05:06 Lorazepam (Ativan) 0.5 mg PO ONETIME ONE Stop: 08/19/20 09:29 Last Admin: 08/19/20 10:04 Dose: 0.5 mg Documented by: Morphine Sulfate (Duramorph Pf) Confirm Administered Dose 10 mg .ROUTE .STK-MED ONE Stop: 08/21/20 05:07 Naloxone HCl (Narcan) 0.1 mg IVPUSH ONETIME PRN PRN Reason: Respiratory Depression Stop: 08/22/20 08:17 Ondansetron HCl (Zofran) Confirm Administered Dose 4 mg .ROUTE .STK-MED ONE Stop: 08/21/20 04:57 Oxytocin (Pitocin) Confirm Administered Dose 30 unit .ROUTE .STK-MED ONE Stop: 08/21/20 04:58 Propofol (Diprivan 20 Ml) Confirm Administered Dose 200 mg .ROUTE .STK-MED ONE Stop: 08/21/20 04:59 - Interaction Infant Disposition, : [place] at Bedside Interaction: Not Interacting Infant Feeding: Bottle Fed , Encouraged to Breastfeed Support Person: - Recovery Exam Fundal Tone: Firm Fundal Level: At Umbilicus Fundal Placement: Midline Lochia Amount: Moderate Lochia Color: Rubra/Red Perineum Description: Edematous, Hemorrhoids Episiotomy/Laceration: None Bladder Status: Nonpalpable (Benavidez catheter removed at 6:30 am today.) Urinary Elimination: Not Voiding (Due to void by 12:30 pm today) - Exam General: Alert, Oriented, Cooperative HEENT: Pupils Equal, Pupils Reactive, Mucous Membr. Moist/[place] Neck: Supple Lungs: Decreased Breath Sounds Cardiovascular: Regular Rate, Regular Rhythm GI/Abdominal Exam: Normal Bowel Sounds, Soft, Non-Tender, No Organomegaly, No Distention Extremities: Normal Inspection, Normal Range of Motion, Non-Tender, Pedal Edema (+1 pitting edema BLE. Generalized non-pitting edema to BUEs/face) Skin: Warm, Dry, Intact Wound/Incisions: Dressing Dry and Intact (CORAZON dressing intact; vacuum co nfirmed.), Drainage (Scant to small old bloody incision drainage) Neurological: No New Focal Deficit Psy/Mental Status: Alert, Normal Affect, Anxious - Problem List & Annotations (1) Delivery by section SNOMED Code(s): 388720375 Code(s): [id number] - Status: Acute Priority: High Current Visit: Yes (2) Failure of descent in labor, delivered, current hospitalization SNOMED Code(s): 088879420, 696008616 Code(s): O62.2 - OTHER UTERINE INERTIA Status: Acute Priority: High Current Visit: Yes - Problem List Review Problem List Initiated/Reviewed/Updated: Yes - Plan Plan:: Lavinia is a 29 yo PPD1 S/P primary LTCS at 39+1 wks due to failure to descend and prolonged 2nd stage labor >3 hours, ROM ~23 hours. RN reported maternal fever 104.2 F treated well with 1000 mg Tylenol x once at 7:48 pm yesterday; subsequent temp 99.7 F at 10:45 pm. CBC and CMP unremarkable; WBCs 10.86 (neutrophils 8.8); Hgb 9.7. Patient did not ambulate or utilize IS yesterday, and has ambulated x 1 today. Currently hemodynamically stable, afebrile, O2 sats 90-93% on RA. Physical exam unremarkable except bilateral diminished lung sounds, generalized non-pitting edema with +1 pitting edema BLE. Patient encouraged to ambulated 3-5 times per day, utilize IS every 1-2 hours when not ambulating. Currently eating and hydrating independently. Benavidez catheter removed at 6:30 am, void pending. If unable to void by 12:30 am, plan to bladder scan patient and notify provider election judge. Currently bottle-feeding infant (who is receiving IV hydration and glucose monitoring) but desires to breast feed/pump. RN may consult if patient desires. Not currently bonding well with baby, encouraged to hold and interact with baby despite IV therapy. Pain moderately well controlled with DuraMorph and toradol IV, "I am just so sore and everything hurts especially on my left side"; plan to transition to PO Percocet regimen today. LTCS CORAZON dressing intact, scant to small old bloody drainage noted to dressing; plan to maintain dressing intact x 7 days, will remove in office, cleanse, and place dermabond on incision site. Vaginal bleeding moderate with no clots, uterus firm @U. Plan to continue inpatient care. Discussed milestones necessary for discharge (as noted above): ambulating, eating, hydrating, and voiding independently with pain well controlled with PO analgesia. Plan for repeat CBC in am. Patient verbalizes understanding with POC and acknowledges necessity despite needle phobia. May consider D/C tomorrow afternoon pending patient condition.
[2020-08-22] MEDS ORDERED: Ketorolac 30 MG/ML SDV ONE (11:30)
[2020-08-22] MEDS: Iron Polysaccharides Complex 150 MG Cap PO SCH (11:34)
[2020-08-22] MEDS: Acetaminophen/oxyCODONE 325-5 MG Tab PO PRN ×2 (14:12→21:56)
[2020-08-22] MEDS: Ibuprofen 800 MG Tab PO PRN ×2 (18:20→19:58)
[2020-08-23] MEDS: Ibuprofen 800 MG Tab PO PRN (04:07)
[2020-08-23] MEDS: Acetaminophen/oxyCODONE 325-5 MG Tab PO PRN ×2 (06:20→11:22)
[2020-08-23] MEDS: Docusate Sodium 100 MG Cap PO SCH ×2 (09:23)
[2020-08-23] MEDS: Iron Polysaccharides Complex 150 MG Cap PO SCH (09:23)
[2020-08-23] MEDS ORDERED: Hydrochlorothiazide 12.5 MG Cap PO ONE (13:37)
--- NOTE | 2020-08-23 13:46 | PCM.DCSUM1 ---
Discharge Summary - Hospital Course Free Text/Narrative:: Lavinia is a 29 yo on PPD2 S/P primary LTCS at 39+1 wks due to failure to descend and prolonged 2nd stage labor >3 hours, ROM ~23 hours. O pos, RI, GBS neg. CORAZON dressing in place, vacuum WNL. Small old blood noted to dressing. Patient C/O "heaviness ... swollen" left lower abdomen. Upon inspection, no topical skin discoloration or bruising/mottling noted. Skin to bilateral hip creases underneath adhesive tape did blister and are currently oozing small serous drainage. Pain moderately well controlled with oral analgesia. Patient reports she has been ambulating more with small to moderate assistance from . Eating, voiding, hydrating independently. +1 - +2 BLE pitting edema noted; generalized BUE and facial edema appears to be resolving. Patient reports use of IS "a lot", and also reports "I have coughed up a lot of stuff...I feel much better". Breast + bottle feeding; bonding with and lactating support has been highly encouraged by nursing staff, patient interacting with and breast feeding infant more than yesterday. Infant currently resting quietly in bassinet, patient sitting comfortably in chair. Patient verbalizes that she has not slept adequate in-patient and strongly desires to be discharged home today; reports she feels comfortable with the level of care and support her provides. Diagnosis: Stroke: No - Discharge Data Discharge Date: 08/23/20 Discharge Disposition: Home, Self-Care 01 Condition: Fair - Referral to Home Health Date of Face to Face Encounter: 08/23/20 Reason for Homebound Status: Patient desire; post-op primary LTCS for failure to descend. Primary Care Physician: Sangeetha Scott CNM Skilled Need: mother and wellness, , and bonding support. - Discharge Diagnosis/Problem(s) (1) Delivery by section SNOMED Code(s): 977701844 ICD Code: [id number] - Status: Acute Priority: High Current Visit: Yes (2) Failure of descent in labor, delivered, current hospitalization SNOMED Code(s): 832454886, 726875859 ICD Code: O62.2 - OTHER UTERINE INERTIA Status: Acute Priority: High Current Visit: Yes - Patient Summary/Data Operative Procedure(s) Performed: Primary C/section. - Patient Instructions Diet: Usual Diet as Tolerated, Regular Diet as Tolerated, Drink 8-10+ Glasses/Day Activity: As Tolerated, Cough & Deep Breathe, Full Weight Bearing, No Strenuous Activities Driving: May Drive Today Showering/Bathing: May Shower Wound/Incision Care: Keep Operative Site/Wound Site Clean and Dry, Do NOT Change Dressing Notify Provider of: Fever, Increased Pain, Swelling and Redness, Drainage, Nausea and/or Vomiting - Discharge Plan *PRESCRIPTION DRUG MONITORING PROGRAM REVIEWED*: No *COPY OF PRESCRIPTION DRUG MONITORING REPORT IN PATIENT LUTHER: No Prescriptions/Med Rec: Docusate Sodium [Colace] 100 mg PO BID 2 Days #60 cap Iron Polysaccharides Complex [Ferrex 150] 150 mg PO DAILY #60 cap Ibuprofen [Motrin] 800 mg PO Q8H PRN #90 tablet PRN Reason: mild pain or fever Acetaminophen/oxyCODONE [Percocet 325-5 MG] 1 tab PO Q4H PRN #30 tablet PRN Reason: Pain (Moderate 4-6) Home Medications: Home Meds Acetaminophen [Tylenol Extra Strength] 1 - 2 tab PO PRN 08/19/20 [History] Acetaminophen/oxyCODONE [Percocet 325-5 MG] 1 tab PO Q4H PRN #30 tablet 08/23/20 [Rx] Docusate Sodium [Colace] 100 mg PO BID 2 Days #60 cap 08/23/20 [Rx] Ibuprofen [Motrin] 800 mg PO Q8H PRN #90 tablet 08/23/20 [Rx] Iron Polysaccharides Complex [Ferrex 150] 150 mg PO DAILY #60 cap 08/23/20 [Rx] Oxygen Therapy Mode: Room Air Referrals: [facility] [Outside] Sangeetha Scott CNM [Mid-] - 10/01/20 1:00 pm - Discharge Summary/Plan Comment DC Time >30 min.: Yes (May be discharged home today. ) Discharge Summary/Plan Comment: Hemodynamically stable, afebrile. May be discharged home today with support of . Continue all independent activities as tolerated. Home health prescription placed today to intermittently support mother and well-being at home for first week of care or longer as needed. New prescripti ons sent to pharmacy for iron supplementation, pain control, and stool softening. RTO PPD7 for incision check, CORAZON dressing removal, and Dermabond placement -OR- sooner if problems or needs arise. - General Info Date of Service: 08/23/20 Admission Dx/Problem (Free Text: Patient Status Order with Admit Dx/Problem 08/19/20 08:36 Patient Status [ADT] Routine Admission Diagnosis/Problem Admission Diagnosis/Problem 08/19/20 10:23 Lavinia is a 29 yo at that presented to L&D at 39+0 (KAY 08/26/2020) for elective IOL with resulting primary LTCS at 39+1 wks due to failure to descend and prolonged 2nd stage labor >3 hours, ROM ~23 hours. O pos, RI, GBS neg. Received paige-op clindamycin for surgical prophylaxis. 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 NKDA. TWG 58.8 lbs. NBF 9 lbs 6 oz (4240 g); FSBS 23 with glucose administration x 2; likely undiagnosed GDM. 08/19/20 10:28 Functional Status: Reports: Pain Controlled, Tolerating Diet, Ambulating, Urinating, Incentive Spirometry - Review of Systems General: Reports: No Symptoms HEENT: Reports: No Symptoms Pulmonary: Reports: No Symptoms Cardiovascular: Reports: No Symptoms Gastrointestinal: Reports: No Symptoms Genitourinary: Reports: No Symptoms Musculoskeletal: Reports: No Symptoms Skin: Reports: No Symptoms Neurological: Reports: No Symptoms Psychiatric: Reports: No Symptoms - Patient Data Vitals - Most Recent: Last Vital Signs Temp 97.6 F 08/23/20 12:00 Pulse 80 08/23/20 12:00 Resp 20 08/23/20 12:00 BP 116/62 08/23/20 12:00 Pulse Ox 80 L 08/23/20 12:00 Weight - Most Recent: 260 lb I&O - Last 24 hours: Intake & Output 08/22/20 08/23/20 08/23/20 22:59 06:59 14:59 Intake Total 800 Output Total 350 Balance 450 Lab Results - Last 24 hrs: Laboratory Results - last 24 hr 08/23/20 Range/Units 05:55 WBC 13.65 H (4.0-11.0) K/uL RBC 3.40 L (4.30-5.90) M/uL Hgb 9.0 L (12.0-16.0) g/dL Hct 28.1 L (36.0-46.0) % MCV 82.6 (80.0-98.0) fL MCH 26.5 L (27.0-32.0) pg MCHC 32.0 (31.0-37.0) g/dL RDW Std Deviation 49.7 (28.0-62.0) fl RDW Coeff of Janine 16 H (11.0-15.0) % Plt Count 229 (150-400) K/uL MPV 10.60 (7.40-12.00) fL Neut % (Auto) 77.0 (48.0-80.0) % Lymph % (Auto) 14.4 L (16.0-40.0) % [place] % (Auto) 5.9 (0.0-15.0) % Eos % (Auto) 2.5 (0.0-7.0) % Baso % (Auto) 0.2 (0.0-1.5) % Neut # (Auto) 10.5 H (1.4-5.7) K/uL Lymph # (Auto) 2.0 (0.6-2.4) K/uL [place] # (Auto) 0.8 (0.0-0.8) K/uL Eos # (Auto) 0.3 (0.0-0.7) K/uL Baso # (Auto) 0.0 (0.0-0.1) K/uL Nucleated RBC % 0.0 /100WBC Nucleated RBCs # 0 K/uL Med Orders - Current: Current Medications Acetaminophen (Tylenol Extra Strength) 1,000 mg PO Q6H PRN PRN Reason: Pain Last Admin: 08/22/20 05:34 Dose: 1,000 mg Documented by: Bisacodyl (Dulcolax) 10 mg RECTAL ONETIME PRN PRN Reason: Constipation Butorphanol Tartrate (Stadol) 1 mg IVPUSH Q1H PRN PRN Reason: Pain Last Admin: 08/20/20 07:21 Dose: 1 mg Documented by: Carboprost Tromethamine (Hemabate Ds) 250 mcg IM ASDIRECTED PRN PRN Reason: Post Hemorrhage Diphenhydramine HCl (Benadryl) 25 mg IVPUSH Q6H PRN PRN Reason: Itching or Nausea Docusate Sodium (Colace) 100 mg PO BID [facility] Last Admin: 08/23/20 09:23 Dose: 100 mg Documented by: Emollient Ointment (Lansinoh Hpa) 0 gm TOP ASDIRECTED PRN PRN Reason: Sore Nipples Hydrochlorothiazide (Hydrochlorothiazide) 12.5 mg PO ONETIME ONE Stop: 08/23/20 13:38 Hydroxyzine Pamoate (Vistaril) 50 mg PO BEDTIME PRN PRN Reason: Sleep Last Admin: 08/21/20 21:08 Dose: 50 mg Documented by: Oxytocin/Sodium Chloride (Oxytocin 30 Unit/500 Ml-Ns) 30 unit in 500 mls @ 999 mls/hr IV TITRATE [place]IA Tranexamic Acid 1,000 mg/ (Sodium Chloride) 110 mls @ 660 mls/hr IV ONETIME PRN PRN Reason: Bleeding Oxytocin/Sodium Chloride (Oxytocin 30 Unit/500 Ml-Ns) 30 unit in 500 mls @ 2 mls/hr IV TITRATE [facility]; Protocol Last Titration: 08/21/20 03:30 Dose: 0 munits/min, 0 mls/hr Documented by: Lactated Ringer's (Ringers, Lactated) 1,000 mls @ 150 mls/hr IV ASDIRECTED [facility] Last Admin: 08/20/20 13:24 Dose: 200 mls/hr Documented by: Lactated Ringer's (Ringers, Lactated) 1,000 mls @ 125 mls/hr IV ASDIRECTED [facility] Last Infusion: 08/22/20 00:39 Dose: Infused Documented by: Tranexamic Acid 1,000 mg/ (Sodium Chloride) 110 mls @ 660 mls/hr IV ONETIME PRN PRN Reason: Bleeding Ibuprofen (Motrin) 800 mg PO Q8H PRN PRN Reason: mild pain or fever Last Admin: 08/23/20 04:07 Dose: 800 mg Documented by: Lidocaine HCl (Xylocaine 1%) 50 ml INJECT ONETIME PRN PRN Reason: Laceration repair Methylergonovine Maleate (Methergine) 0.2 mg IM ASDIRECTED PRN PRN Reason: Post Hemorrhage Methylergonovine Maleate (Methergine) 0.2 mg IM ONETIME PRN PRN Reason: Excessive Vaginal Bleeding Misoprostol (Cytotec) 200 mcg PO ONETIME PRN PRN Reason: Post Hemorrhage Misoprostol (Cytotec) 25 mcg VAG Q4H PRN PRN Reason: Cervical Ripening Last Admin: 08/19/20 13:21 Dose: 25 mcg Documented by: Misoprostol (Cytotec) 25 mcg PO Q4H PRN PRN Reason: Cervical Ripening Last Admin: 08/19/20 13:23 Dose: 25 mcg Documented by: Misoprostol (Cytotec) 1,000 mcg RECTAL ONETIME PRN PRN Reason: excessive bleeding Ondansetron HCl (Zofran) 4 mg IVPUSH Q6H PRN PRN Reason: Nausea/Vomiting Ondansetron HCl (Zofran) 4 mg IVPUSH Q4H PRN PRN Reason: Nausea/Vomiting Ondansetron HCl (Zofran) 4 mg IVPUSH Q6H PRN PRN Reason: Nausea Oxycodone/Acetaminophen (Percocet 325-5 Mg) 1 tab PO Q4H PRN PRN Reason: Pain (moderate 4-6) Oxycodone/Acetaminophen (Percocet 325-5 Mg) 2 tab PO Q4H PRN PRN Reason: Pain (moderate 4-6) Last Admin: 08/23/20 11:22 Dose: 2 tab Documented by: Oxycodone/Acetaminophen (Percocet 325-5 Mg) 2 tab PO Q6H PRN PRN Reason: Pain (moderate 4-6) Last Admin: 08/23/20 02:00 Dose: 2 tab Documented by: Oxytocin (Pitocin) 10 unit IM ASDIRECTED PRN PRN Reason: Excessive Vaginal Bleeding Polysaccharide Iron Complex (Ferrex 150) 150 mg PO DAILY [place] Last Admin: 08/23/20 09:23 Dose: 150 mg Documented by: Sodium Chloride (Saline Flush) 10 ml FLUSH ASDIRECTED PRN PRN Reason: Keep Vein Open Sodium Chloride (Saline Flush) 2.5 ml FLUSH ASDIRECTED PRN PRN Reason: Keep Vein Open Sodium Chloride (Normal Saline) 10 ml IV ASDIRECTED PRN PRN Reason: IV Use Sterile Water (Sterile Water For Irrigation) 1,000 ml IRR ASDIRECTED PRN PRN Reason: delivery Terbutaline Sulfate (Brethine) 0.25 mg SUBCUT ASDIRECTED PRN PRN Reason: Tacysystole Discontinued Medications Bupivacaine HCl (Marcaine 0.5%) Confirm Administered Dose 30 ml .ROUTE .STK-MED ONE Stop: 08/21/20 04:02 Last Admin: 08/22/20 10:23 Dose: Not Given Documented by: Dinoprostone (Cervidil) 10 mg VAG ONETIME ONE Stop: 08/20/20 10:01 Last Admin: 08/20/20 11:46 Dose: 10 mg Documented by: Diphenhydramine HCl (Benadryl) 25 mg IVPUSH Q4H PRN PRN Reason: Itching Stop: 08/22/20 08:17 Fentanyl (Sublimaze) Confirm Administered Dose 200 mcg .ROUTE .STK-MED ONE Stop: 08/20/20 08:15 Fentanyl (Sublimaze) Confirm Administered Dose 100 mcg .ROUTE .STK-MED ONE Stop: 08/21/20 04:55 Fentanyl (Sublimaze) Confirm Administered Dose 100 mcg .ROUTE .STK-MED ONE Stop: 08/21/20 05:37 Fentanyl (Sublimaze) 50 mcg IVPUSH Q1H PRN PRN Reason: Pain (severe 7-10) Last Admin: 08/22/20 00:48 Dose: 50 mcg Documented by: Ropivacaine (Naropin 0.2%) Confirm Administered Dose 100 mls @ as directed .ROUTE .STK-MED ONE Stop: 08/20/20 08:15 Ropivacaine (Naropin 0.2%) Confirm Administered Dose 100 mls @ as directed .ROUTE .STK-MED ONE Stop: 08/20/20 18:48 Ropivacaine (Naropin 0.2%) Confirm Administered Dose 100 mls @ as directed .ROUTE .STK-MED ONE Stop: 08/21/20 01:10 Last Admin: 08/22/20 10:23 Dose: Not Given Documented by: Clindamycin Phosphate (Cleocin In D5w) 50 mls @ 100 mls/hr IV NOW ONE Stop: 08/21/20 04:44 Last Admin: 08/22/20 10:23 Dose: Not Given Documented by: Acetaminophen (Ofirmev) Confirm Administered Dose 100 mls @ as directed .ROUTE .STK-MED ONE Stop: 08/21/20 06:00 Ketorolac Tromethamine (Toradol) 30 mg IVPUSH Q6H [place] Stop: 08/22/20 05:31 Last Admin: 08/22/20 11:34 Dose: 30 mg Documented by: Ketorolac Tromethamine (Toradol) Confirm Administered Dose 30 mg .ROUTE .STK-MED ONE Stop: 08/21/20 05:35 Ketorolac Tromethamine (Toradol) Confirm Administered Dose 30 mg .ROUTE .STK-MED ONE Stop: 08/22/20 11:31 Last Admin: 08/23/20 09:36 Dose: Not Given Documented by: Lidocaine HCl (Xylocaine-Mpf 1%) Confirm Administered Dose 5 ml .ROUTE .STK-MED ONE Stop: 08/21/20 05:06 Lorazepam (Ativan) 0.5 mg PO ONETIME ONE Stop: 08/19/20 09:29 Last Admin: 08/19/20 10:04 Dose: 0.5 mg Documented by: Morphine Sulfate (Duramorph Pf) Confirm Administered Dose 10 mg .ROUTE .STK-MED ONE Stop: 08/21/20 05:07 Naloxone HCl (Narcan) 0.1 mg IVPUSH ONETIME PRN PRN Reason: Respiratory Depression Stop: 08/22/20 08:17 Ondansetron HCl (Zofran) Confirm Administered Dose 4 mg .ROUTE .STK-MED ONE Stop: 08/21/20 04:57 Oxytocin (Pitocin) Confirm Administered Dose 30 unit .ROUTE .STK-MED ONE Stop: 08/21/20 04:58 Propofol (Diprivan 20 Ml) Confirm Administered Dose 200 mg .ROUTE .STK-MED ONE Stop: 08/21/20 04:59 - Exam General: Reports: Alert, Oriented, Cooperative, No Acute Distress HEENT: Reports: Pupils Equal, Pupils Reactive, Mucous Membr. Moist/Decker Neck: Reports: Supple Lungs: Reports: Clear to Auscultation (Bilateral upper lobes), Normal Respiratory Effort, Decreased Breath Sounds (Bilateral lower lobes, improved from 1 day ago) Cardiovascular: Reports: Regular Rate, Regular Rhythm GI/Abdominal Exam: Normal Bowel Sounds, Soft, Non-Tender, No Organomegaly, No Di stention (Female) Exam: Enlarged Uterus ( uterus, U-1), Vaginal Bleeding (Moderate rubra lochia, no clots.) Back Exam: Reports: Normal Inspection, Full Range of Motion Extremities: Normal Inspection, Normal Range of Motion, Non-Tender, No Pedal Edema, Normal Capillary Refill Skin: Reports: Warm, Dry, Intact Wound/Incisions: Reports: Dressing Dry and Intact (Small old blood drainage noted, no change from 1 day ago.), Other (Blistering and small serous drainage noted at bilateral inguinal creases. RN instructed to gently remove non-adhered tape) Neurological: Reports: No New Focal Deficit Psy/Mental Status: Reports: Alert, Normal Affect, Normal Mood
== END 2020-08-23 16:00 | disposition home or self-care (01) | DRG 788 ==
LOC: MW.OB 04:56 → OBSVTOIN 08-21 04:56 → MW.OB 08-21 18:07
PROVIDERS: ADMIT Obstetrics & Gynecology; ATTEND Obstetrics & Gynecology
PROC: 10D00Z1 Extraction of Products of Conception, Low, Open Approach (ICD-10-PCS; principal; 2020-08-21)
PROC: 3E0P7VZ Introduction of Hormone into Female Reproductive, Via Natural or Artificial Opening (ICD-10-PCS; 2020-08-21)
PROC: 3E0R3BZ Introduction of Anesthetic Agent into Spinal Canal, Percutaneous Approach (ICD-10-PCS; 2020-08-21)
DX: O62.1 Secondary uterine inertia (principal); Z3A.39 39 weeks gestation of pregnancy; Z37.0 Single live birth; O99.214 Obesity complicating childbirth; E66.9 Obesity, unspecified; Z88.0 Allergy status to penicillin; Z20.828 Contact with and (suspected) exposure to other viral communicable diseases
CPT/HCPCS: 01967; 01968; 36410; 36415; 51702; 59200; 80053; 82947; 85014; 85018; 85025; 85027; 86592; 86850; 86900; 86901; A9270-GY; J0131; J0595; J1885; J2001; J2270; J2405; J2590; J2704; J2795; J3010; J3490; J7120; U0002